=== PATIENT | female | born 1990 | race African-American/Black ===

== ENCOUNTER 2016-10-02 13:35 | Emergency (ER) | payer OTHER ==
[2016-10-02 13:49] VITALS: TEMP 98.8
[2016-10-02] MEDS ORDERED: NS 1,000 ML IV ONE (14:38)
[2016-10-02] MEDS ORDERED: ONDANSETRON 4 MG/2 ML VIAL IVP ONE (15:08)
[2016-10-02] MEDS ORDERED: METOCLOPRAMIDE 10 MG/2 ML VIAL IVP ONE (15:08)
[2016-10-02] MEDS ORDERED: DEXAMETHASONE 10 MG/ML VIAL IVP ONE (15:08)
--- NOTE | 2016-10-02 15:08 | UCPHY ---
H & P Time Seen by Provider: 10/02/16 14:59 Patient Type: New HPI/ROS: HPI Migraine headache. 26-year-old female by private vehicle with her friend. She reports gradual onset migraine headache last Friday. She reports that had a typical aura which consisted of seeing spots, nausea, vomiting, photophobia and a copper like taste in her mouth. She reports that she had migraine headaches as a young teenager but they went away and this is the 1st headaches she has had in some time. She does described as being typical of her previous migraine headaches. She felt better on Friday. Friday night the headache returned persisted through Friday and then Friday she felt great. She woke again today with the same symptoms and a gradual onset headache. ROS: Constitutional: No fever, no chills. No weakness. Eyes: No discharge. No changes in vision. ENT: No sore throat. No nasal congestion or rhinorrhea. Respiratory: No cough. No shortness of breath. Cardiac: No chest pain, no palpitations. Gastrointestinal: No abdominal pain, as above, no diarrhea. Genitourinary: No hematuria. No dysuria or increased frequency with urination. Musculoskeletal: No back pain. No neck pain. No myalgias or arthralgias. Skin: No rashes. Neurological: As above. No focal weakness or altered sensation. Past medical history: As above. Social history: Here with her friend. Nonsmoker. Physical Exam: General Appearance: Alert, no distress. This patient is responding to questions appropriately and in full sentences. This patient appears well- hydrated and well-nourished. Eyes: Pupils equal and round no pallor or injection. No lid edema, erythema or injection. Mild photophobia. No nystagmus. ENT, Mouth: Mucous membranes are moist. The pharyngeal tissues are unremarkable. No edema or swelling. No asymmetry suggestive of abscess. No erythema or exudates. Gastrointestinal: Abdomen is soft and nontender, no masses, bowel sounds normal. No focal tenderness at McBurney's point. No Garrett sign. Neurological: Motor sensory function is grossly intact. Cranial nerves are normal. Gait is normal. Skin: Warm and dry, no rashes. Musculoskeletal: Neck is supple and nontender. No pain on flexion of the neck. No tenderness on palpation of the suboccipital and superior paraspinal tissues. Extremities are symmetrical. All joints range without pain or impingement. Psychiatric: No agitation. No depression. Database: EKG: Imaging: Procedures: Emergency department course: Vital signs reviewed and are normal. She has no medication allergies. No contraindications to NSAIDs. An IV was started. She was started on 1 L of IV normal saline. She will be given 10 mg of IV Decadron, 10 mg of IV Reglan and 25 mg of IV Benadryl initially. 4:00 p.m., patient re-evaluated. Reports that her headache is better but still present. She will be given 30 mg of IV Toradol. 4:45 p.m., patient re-evaluated. Resting comfortably at this time. Headache has completely resolved. I discussed further observation in the emergency department but she declined. She is requesting discharge. She feels comfortable going home with her friend who will be driving. Follow-up and return to emergency department precautions have been thoroughly reviewed with her. All of her questions were answered. She was discharged home in good condition. Differential Diagnosis: The differential diagnosis on this patient includes but is not limited to migraine headache. Subarachnoid hemorrhage, cavernous sinus thrombosis, sagittal sinus thrombosis, carotid artery dissection, vertebral artery dissection, meningitis, encephalitis, temporal arteritis unlikely. This represents a partial list of diagnoses considered. These considerations are based on history, physical exam, past history, reassessment and diagnostic testing. Smoking Status: Never smoked Constitutional: Initial Vital Signs Temperature (C) 37.1 C 10/02/16 13:45 Heart Rate 91 10/02/16 13:45 Respiratory Rate 18 10/02/16 13:45 Blood Pressure 107/65 10/02/16 13:45 O2 Sat (%) 98 10/02/16 13:45 Allergies/Adverse Reactions: No Known Allergies Allergy (Verified 10/02/16 13:44) Home Medications: Medication Instructions Recorded NK [No Known Home Meds] 10/02/16 Medical Decision Making - Data Points Medications Given: Discontinued Medications Dexamethasone (Decadron Injection) 10 mg IVP EDNOW ONE Stop: 10/02/16 15:09 Last Admin: 10/02/16 15:30 Dose: 10 mg Diphenhydramine HCl (Benadryl Injection) 25 mg IVP EDNOW ONE Stop: 10/02/16 15:09 Last Admin: 03/22/17 15:30 Dose: 25 mg Sodium Chloride (Ns) 1,000 mls @ 0 mls/hr IV ONCE ONE PRN Reason: Wide Open Stop: 10/02/16 14:39 Last Admin: 10/02/16 14:42 Dose: 1,000 mls Ketorolac Tromethamine (Toradol) 30 mg IVP EDNOW ONE Stop: 10/02/16 16:01 Last Admin: 10/02/16 16:25 Dose: 30 mg Metoclopramide HCl (Reglan Injection) 10 mg IVP EDNOW ONE Stop: 10/02/16 15:09 Last Admin: 10/02/16 15:30 Dose: 10 mg Ondansetron HCl (Zofran) 4 mg IVP EDNOW ONE Stop: 10/02/16 15:09 Last Admin: 10/02/16 15:30 Dose: 4 mg Departure - Departure Disposition: Home, Routine, Self-Care Clinical Impression: Headache Condition: Good Instructions: Migraine Headache (ED) Additional Instructions: Read and follow provided instructions. Follow-up with Neurology, Dr. Bebeto Rothman, or 1 of his partners as discussed in the next 2-3 days for re-evaluation of your migraine headaches. Return to the emergency department for return of headache, vomiting, fever, neck pain or other serious concerns. Referrals: Bebeto Rothman MD [Medical Doctor] - As per Instructions - PQRS PQRS Measurement: Not applicable.
[2016-10-02] MEDS ORDERED: KETOROLAC 30 MG/1 ML SDV IVP ONE (16:00)
[2016-10-02 17:02] VITALS: BP 108/66; PULSE 71; RESP 16; O2SAT 96
== END 2016-10-02 16:49 | disposition home or self-care (01) ==
LOC: CED 13:35
DX: G43.909 Migraine, unspecified, not intractable, without status migrainosus (principal)
CPT/HCPCS: 96361-PO; 96374-PO; 96375-PO; 99203-PO; G0463-PO; J1200; J1885; J2405; J2765